=== PATIENT | female | born 1990 | race Caucasian/White ===

== ENCOUNTER 2021-07-19 19:55 | Emergency (ER) | payer MEDICAID, SELFPAY ==
[2021-07-19 19:56] VITALS: BP 138/84; PULSE 73; RESP 15; TEMP 36; O2SAT 98; BMI 18.7
--- NOTE | 2021-07-19 20:48 | ED.RN ---
called contact number (Chavo) [phone], was just her ride here to her parents' home. parents numbers [phone] and [phone] and phonecalls went to voicemail. per police they have no relationship with pt. another contact number given by Chavo from pt using his phone is [phone]
--- NOTE | 2021-07-19 20:58 | EDS_ITS ---
HPI HPI - Psych History of Present Illness Chief Complaint: Mental Health Informant: patient Narrative Narrative: Is extremely difficult to get a story from this patient. We also called a number that was on piece of paper she had. We also called 2 numbers to her parents that with no answer. The below information is the best summary of what I can get. Patient states that she came up here just to have lunch with her parents. However the best information that we have is that she has not seen her parents in 9 years. She states she just had lunch with him a year ago but then hesitated and was not sure. She got a ride up from somebody who is a friend. She states she has lots of friends because she is very popular. But she could not say the name of this person. She was evidently on somebody's porch. She would not leave so the police were called and brought her down here. She states that this was a porch of a friend of her brothers that she used to stay at when she was very young. She was talking to the person who live there who she knew from the past. That person had to go to work and she would not let the patient into her house. Patient then goes off on a tangent of needing to smoke/vape because she vapes all the time. When we started talking about that she went off on a tangent of needing to get food. It is very hard to keep this person on any conversation for more than a matter of seconds. She does not come back to original questions. She gets frustrated and agitated. Patient denies chronic disease including denying psychiatric illness. She denies medications She is reportedly allergic to nickel and penicillin. PFSH PFS Medical History unable to obtain Home Medications NK 07/19/21 [History Last Taken Unknown] Allergy/AdvReac Type Severity Reaction Status Date / Time nickel Allergy Hives Verified 07/19/21 20:00 Penicillins [PCN] Allergy Hives Verified 07/19/21 20:00 Family History unable to obtain Surgical History unable to obtain Social History Smoking Status: Current every day smoker tobacco type: e-cigarettes ROS ROS ED Constitutional Constitutional ED: Denies fever(s) Eyes Eyes: Denies change in vision ENT ENT ED: Denies rhinorrhea or sore throat Cardiovascular Cardiovascular: Denies chest pain Respiratory/Chest Respiratory/Chest: Denies cough or dyspnea Gastrointestinal Gastrointestinal: Denies diarrhea or vomiting Genitourinary Genitourinary ED: Denies dysuria Musculoskeletal Musculoskeletal: Denies myalgias Integumentary Denies rash Neurologic Neurologic: Denies headache(s) Psychiatric Psychiatric: Reports other Details: See history of present illness. ; Denies suicidal ideation or suicidal thoughts Endocrine Endocrinology: Denies polydipsia or polyuria Allergic/Immunologic Allergic/Immunologic ED: Denies urticaria EXAM Physical Exam Const Vital Signs: 07/19/21 19:56 Temperature 96.8 F L Temperature Source Temporal Pulse Rate 73 Respiratory Rate 15 Blood Pressure 138/84 H Blood Pressure Mean 102 Pulse Ox 98 Oxygen Delivery Method Room Air Patient is appropriately dressed. She makes good eye contact. She alternates between tearful happy and frustrated very easily. I see no sign of trauma. Positive well nourished and well developed General Appearance ED: well developed HEENT normocephalic and atraumatic Eyes General Eye ED: Negative for pale conjunctiva or scleral icterus Neck no JVD Resp normal respiratory effort and clear to auscultation bilaterally Cardio Rate: regular rate Rhythm: regular rhythm GI non-tender Palpation: soft Extremity normal to inspection Neuro Sensorium / Orientation: alert Psych Psych Narrative: Patient tries to be cooperative. But she gets frustrated. 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 She has tremendous difficulty staying on any conversation task or question for more than a matter of seconds. She does not appear to be paranoid. She does clearly have flight of ideas. She denies suicidal thoughts. Skin Rashes: no rashes MDM MDM MDM Narrative Medical decision making narrative: A call was made to the number she had on her. This is the person who drove her up from [place] where she lives. This patient evidently is a lawn maintenance individual who met her 2 days ago and just gave her a ride up here to help her. We tried to contact family but there was no answer. Patient CBC electrolytes are normal. Alcohol is 4. Tox screen is positive for cannabis. is negative. My concern with this patient is that she has some grandiosity, flight of ideas and seems to be somewhat manic. This is putting her at risk. We had crisis see her. They agree that this patient would benefit from hospitalization and they are working on that placement. Patient has been pink slipped. We will give her some medication to relax her a bit. She is appearing to be a flight risk talking about leaving. Lab Data Attestation: I reviewed the patient's lab results. Labs: Laboratory Results - last 24 hr 07/19/21 07/19/21 07/19/21 21:50 21:50 21:50 WBC 8.1 RBC 3.77 L Hgb 12.1 Hct 37.0 MCV 98.1 MCH 32.1 H MCHC 32.7 RDW Std Deviation 46.7 H RDW Coeff of Lyndsey 13.2 Plt Count 339 MPV 9.5 Immature Gran % (Auto) 0.200 Neut % (Auto) 55.4 Lymph % (Auto) 33.5 [place] % (Auto) 7.9 Eos % (Auto) 2.4 Baso % (Auto) 0.6 Absolute Neuts (auto) 4.5 Absolute Lymphs (auto) 2.71 Nucleated RBC % 0 Sodium 137 Potassium 4.0 Chloride 107 Carbon Dioxide 27.0 Anion Gap 3 L BUN 13 Creatinine 0.75 Estim Creat Clear Calc 91.93 Est GFR (MDRD) Af Amer 117 Est GFR (MDRD) Non-Af 97 BUN/Creatinine Ratio 17.3 Glucose 159 H Calcium 8.6 Serum , Qual Urine Opiates Screen Urine Methadone Screen Ur Barbiturates Screen Ur Phencyclidine Scrn Ur Amphetamines Screen U Methamphetamin-MDMA U Benzodiazepines Scrn Urine Cocaine Screen U Cannabinoids Screen Ur Drug Screen Comment Ethyl Alcohol 4.0 07/19/21 07/19/21 21:50 22:20 WBC RBC Hgb Hct MCV MCH MCHC RDW Std Deviation RDW Coeff of Lyndsey Plt Count MPV Immature Gran % (Auto) Neut % (Auto) Lymph % (Auto) [place] % (Auto) Eos % (Auto) Baso % (Auto) Absolute Neuts (auto) Absolute Lymphs (auto) Nucleated RBC % Sodium Potassium Chloride Carbon Dioxide Anion Gap BUN Creatinine Estim Creat Clear Calc Est GFR (MDRD) Af Amer Est GFR (MDRD) Non-Af BUN/Creatinine Ratio Glucose Calcium Serum , Qual NEGATIVE Urine Opiates Screen NEGATIVE Urine Methadone Screen NEGATIVE Ur Barbiturates Screen NEGATIVE Ur Phencyclidine Scrn NEGATIVE Ur Amphetamines Screen NEGATIVE U Methamphetamin-MDMA NEGATIVE U Benzodiazepines Scrn NEGATIVE Urine Cocaine Screen NEGATIVE U Cannabinoids Screen POSITIVE H Ur Drug Screen Comment Ethyl Alcohol Discharge Plan Triage Chief Complaint: Mental Health ED Provider: Matt Stover Dx/Rx/DC Orders Clinical Impression: Sharmin Prescriptions: No Action NK RF: 0 Primary Care Provider: Aura Salas Referrals: Aura Salas MD [Primary Care Provider] - Disposition Disposition: Psychiatric Hospital or Unit
[2021-07-19 22:00] LABS: Absolute Lymphocyte Count 2.71 X10^3/uL (0.83-4.51); Absolute Neutrophil Count 4.5 X10^3/uL (2.0-7.7); Basophil# 0.05 X10^3/uL; Basophil% 0.6 % (0-1); Eosinophil# 0.19 X10^3/uL; Eosinophils% 2.4 % (0-5); Hemoglobin 12.1 g/dL (12.0-15.0); Lymphocyte # 2.71 X10^3/ul (0.83-4.51); Lymphocyte % 33.5 % (19-41); Mean Corp Hgb Conc 32.7 g/dL (32-36); Mean Corpuscular Hgb 32.1 pg (27.0-32.0); Mean Corpuscular Volume 98.1 fL (81-99); Mean Platelet Vol. 9.5 fl (6.2-12.0); Monocyte# 0.64 X10^3/uL; Monocyte% 7.9 % (0-10); NRBC Flagged by Analyzer 0 % (0-5); Neutrophil # 4.47 X10^3/uL (2.7-7.7); Neutrophil % 55.4 % (47-70); Platelet Count 339 K/mm3 (150-450); RBC Distribution Width CV 13.2 % (11.6-14.6); RBC Distribution Width SD 46.7 fl (35.1-43.9); Red Blood Count 3.77 M/mm3 (4.2-5.4); White Blood Count 8.1 K/mm3 (4.4-11.0)
[2021-07-19 22:16] LABS: Anion Gap 3 (5-15); BUN 13 mg/dL (7-18); BUN/Creat Ratio 17.3 RATIO (10-20); Calcium,Total 8.6 mg/dL (8.5-10.1); Chloride 107 mmol/L (98-107); Creatinine, Serum 0.75 mg/dL (0.55-1.02); EST Glomerular Filtration Rate 97 mL/min (>60); Est Glom Filt Rate - Afr Amer 117 mL/min (>60); Estimated Creatinine Clearance 91.93 ml/min; Glucose 159 mg/dL (74-106); Sodium Level 137 mmol/L (136-145)
[2021-07-19 22:19] LABS: Internal QC Validated? YES +Cl - CLEAR BKGD; Pregnancy, Serum, hCG Quali. NEGATIVE Negative
[2021-07-19 22:44] LABS: Amphetamine Urine VISTA NEGATIVE (<1000 ng/mL); Barbiturate Urine VISTA NEGATIVE (< 200 ng/mL); Benzodiazepine Urine VISTA NEGATIVE (< 200 ng/mL); Cocaine Urine VISTA NEGATIVE (< 300 ng/mL); Ecstacy Urine VISTA NEGATIVE (< 500 ng/mL); Methadone Urine VISTA NEGATIVE (< 300 ng/mL); PCP Urine VISTA NEGATIVE (< 25 ng/mL); THC Urine VISTA POSITIVE (< 50 ng/mL); Vista UDS pH Range 6
--- NOTE | 2021-07-19 23:25 | ED.RN ---
pt took off nicotine patch.
[2021-07-20] VITALS (8 sets, daily range): BP systolic 114; BP diastolic 74; PULSE 72–74; RESP 14–17; TEMP 36.6; O2SAT 98
--- NOTE | 2021-07-20 00:48 | ED.RN ---
Patient declined the nicoerm at this point and is now following directions and cooperative. Not medicating at this time.
--- NOTE | 2021-07-20 03:25 | ED.RN ---
PENDING [facility]
[2021-07-20] MEDS: Ziprasidone IM 20 MG/ML VIAL IM ×2 (08:12→11:24)
--- NOTE | 2021-07-20 10:26 | CM.ED ---
SOCIAL WORK Call to Crisis to check on status of placement. Spoke with Jose G, per jose g patient is pending at [facility]-they are awaiting call back from provider to review. Staff updated. Jamaica Watts, [employer] TEACHER, DIRECTOR CENTER
--- NOTE | 2021-07-20 11:00 | CM.ED ---
SOCIAL WORK Patient accepted to [facility] by Dr. Pérez to the [facility]. Nurse to call report to . Call to [facility], ETA 30 minutes. Staff and patient updated. Plan: Efren Watts, GI TECH, FRETTED INSTRUMENT REPAIRER
--- NOTE | 2021-07-20 11:14 | NURSING ---
ACCEPTED AT [facility], ETA IS 30 MIN
--- NOTE | 2021-07-20 11:46 | ED.RN ---
AT 1115 PT COMES TO DOORWAY OF ROOM SHOUTING INTO THE HALLWAY DEMANDING THAT SHE NEEDS HER CLOTHES BECAUSE THE DOCTOR TOLD HER TO GO HOME. PT ASSISTED UP TO BATHROOM AND ASSISTED BACK TO ROOM, PT DEMANDING THAT SHE IS READY TO LEAVE. PT EDUCATED THAT SHE IS UNABLE TO HAVE HER BELONGINGS AT THIS TIME AND THAT SHE HAS A RIDE TO [facility] [place] THAT WILL ARRIVE IN 30 MINUTES. PT TOLERATED GEODON INJECTION WELL.
--- NOTE | 2021-07-20 12:11 | ED.RN ---
PT LEAVES DEPARTMENT WITH VAPE PEN AND CELL PHONE IN HAND.
== END 2021-07-20 12:14 ==
PROVIDERS: Emergency Provider Emergency Medicine; PCP Pediatrics
DX: F30.9 Manic episode, unspecified (principal); F17.290 Nicotine dependence, other tobacco product, uncomplicated; F12.90 Cannabis use, unspecified, uncomplicated
CPT/HCPCS: 36415; 80048; 80307; 82077; 84703; 85025; 87426; 96372; 99285; J3486